=== PATIENT | male | born 1975 | race Caucasian/White ===

== ENCOUNTER 2020-06-26 01:07 | Outpatient (CLI) | payer OTHER, SELFPAY ==
[2020-06-26 18:13] LABS: SARS-CoV-2 RNA PCR Negative
== END 2020-06-26 01:08 | disposition home or self-care (01) ==
LOC: ANHCOVIDDT 01:07
PROVIDERS: PCP Family Medicine Sports Medicine; Visit Provider Internal Medicine Gastroenterology
DX: Z01.812 Encounter for preprocedural laboratory examination (principal); Z20.828 Contact with and (suspected) exposure to other viral communicable diseases
CPT/HCPCS: 87635; C9803; U0003

== ENCOUNTER 2020-06-29 00:58 | Day surgery (SDC) | payer OTHER, SELFPAY ==
[2020-06-17 14:57] VITALS: BMI 34.2
--- NOTE | 2020-06-29 12:03 | WPDANESEPPF ---
Anes - Initial Pre Proc Eval Procedure: Operation Date: 06/29/20 13:00 Proposed Procedures p Esophagogastroduodenoscopy - Terrance Raya MD Date/Time: 06/29/20 12:03 Surgeon: Terrance Raya MD Pre Op Diagnosis: dysphagia Patient Data Age: 44 Gender: M Height: 1.8 m Weight: 111.5 kg Allergies Allergy/AdvReac Type Severity Reaction Status Date / Time ciprofloxacin Allergy Unknown Unknown Verified 06/17/20 14:42 iodine Allergy Unknown Unknown Verified 06/17/20 14:42 ioversol Allergy Unknown Unknown Verified 06/17/20 14:42 metronidazole Allergy Unknown Unknown Verified 06/17/20 14:42 Home Medications Medication Instructions Recorded Confirmed Type Vitamin D3 10,000 units PO DAILY 06/17/20 06/17/20 History Patient hx anesthesia problems: none Family hx anesthesia problems: none PMFSH Past Medical History Medical History (Updated 06/29/20 @ 12:03 by Ozzy Lagos MD) Obesity Family History Family History (Updated 06/18/14 @ 07:13 by DOCTOR UNKNOWN) Sibling Family history of gastrointestinal disorder Mother Family history of Parkinson's disease Social History Social History Smoking status: Former smoker Smoking end date: 10/22/09 Alcohol intake: current Anes - Eval Final PreProcedure Day of Procedure 06/29/20 12:03 Patient weight: obese Heart: regular rate and rhythm Lungs: clear to auscultation and normal air movement Airway: Mallampati scale class II Neurological: alert and oriented Last oral intake: >/= 8 hours ASA classification: II Emergent: no Anesthetic plan: proceed Anesthesia type and monitoring: general GIVS Informed Consent: The patient's anesthetic plan and its attendant risks and benefits were discussed with the patient/family/POA. Questions were solicited and answers provided to the satisfaction of the patient/family/POA.
[2020-06-29 12:12] VITALS: BP 118/75; PULSE 51; RESP 16; TEMP 36.4; O2SAT 99
[2020-06-29] MEDS: LACTATED RINGERS 1,000 ML 150 ML IV CONT (12:26)
--- NOTE | 2020-06-29 12:46 | PM.HPGS ---
History of Present Illness History of Present Illness Consent: Risks, benefits, and alternatives have been discussed and questions answered. Patient agrees to proceed with procedure. Chief complaint: dysphagia Narrative: Korey Ding is a 44 year old male with history of dysphagia, never had EGD Review of Systems Constitutional: Constitutional: Denies headache(s) and Denies weakness Eyes: Eyes: Denies blurry vision ENT: Reports Normal hearing present, Denies headache(s) and Denies neck pain Cardiovascular: Cardiovascular: Denies chest pain and Denies dyspnea Respiratory: Respiratory: Denies dyspnea Gastrointestinal: Gastrointestinal: Reports no additional gastrointestinal complaints Genitourinary: Genitourinary: Denies dysuria Musculoskeletal: Musculoskeletal: Denies neck pain Integumentary/Breasts: Skin/Breast: Denies dry skin Neurologic: Reports Normal hearing present, Denies headache(s) and Denies weakness Psychiatric: Psychiatric: Denies anxiety Endocrine: Endocrine: Denies change in body appearance Hematologic/Lymphatic: Hematologic/Lymphatic: Denies easy bleeding Allergic/Immunologic: Allergic/Immunologic: Denies urticaria PMFSH Past Medical History Medical History (Updated 06/29/20 @ 12:47 by Terrance Raya MD) Dysphagia Obesity Family History Family History (Updated 06/18/14 @ 07:13 by DOCTOR UNKNOWN) Sibling Family history of gastrointestinal disorder Mother Family history of Parkinson's disease Social History Social History Smoking status: Former smoker Smoking end date: 10/22/09 Alcohol intake: current Meds Home Medications and Allergies Home Medications Medication Instructions Recorded Confirmed Type Vitamin D3 10,000 units PO DAILY 06/17/20 06/29/20 History Allergies Allergy/AdvReac Type Severity Reaction Status Date / Time ciprofloxacin Allergy Unknown Unknown Verified 06/29/20 12:28 iodine Allergy Unknown Unknown Verified 06/29/20 12:28 ioversol Allergy Unknown Unknown Verified 06/29/20 12:28 metronidazole Allergy Unknown Unknown Verified 06/29/20 12:28 Vital Signs Vital Signs - 24 hr 06/29/20 12:12 Temperature 97.5 F L Pulse Rate 51 L Respiratory Rate 16 Blood Pressure 118/75 Pulse Oximetry 99 Exam Const: General: comfortable and no acute distress HENMT: General nose exam: Normal nares present Eyes: General: appearance normal, both eyes and all related structures Neck: Neck: no JVD Resp: Auscultation: clear to auscultation bilaterally Cardio: Rate: regular rate Rhythm: regular rhythm GI: Inspection: non-distended GI Palp: Yes Soft to palpation Skin: General skin exam: normal color Neuro: General: gait normal Speech: normal speech Extrem: General: normal to inspection Psych: Mental Status: mental status grossly normal Assessment and Plan Assessment and plan (1) Dysphagia: Code(s): R13.10 - Dysphagia, unspecified Status: Acute Assessment and Plan: will proceed with egd
[2020-06-29 13:10] VITALS: BP 102/54; PULSE 51; RESP 16; O2SAT 99
[2020-06-29 13:20] VITALS: BP 112/68; PULSE 53; RESP 21; O2SAT 100
[2020-06-29 13:30] VITALS: BP 113/63; PULSE 50; RESP 19; O2SAT 100
== END 2020-06-29 13:38 | disposition home or self-care (01) ==
PROVIDERS: PCP Family Medicine Sports Medicine; Visit Provider Internal Medicine Gastroenterology
PROC: 0DJ08ZZ Inspection of Upper Intestinal Tract, Via Natural or Artificial Opening Endoscopic (ICD-10-PCS; CPT 43235; principal; 2020-06-29 13:00)
DX: K29.50 Unspecified chronic gastritis without bleeding (principal); K20.9 Esophagitis, unspecified; K29.80 Duodenitis without bleeding; E66.9 Obesity, unspecified; Z68.34 Body mass index [BMI] 34.0-34.9, adult; Z87.891 Personal history of nicotine dependence
CPT/HCPCS: 43239; 87635; 88305; C9803; J2704; J7120; U0003

== ENCOUNTER 2025-01-28 16:24 | Emergency (ER) | payer OTHER, SELFPAY ==
--- NOTE | ~2025-01-28 | CT_ITS ---
CT cervical spine wo con Ordering provider: Angelita Vuong PA-C History: . fall . Comparison: None. Technique: CT of the cervical spine was performed without contrast. Sagittal and coronal reformatted images were also obtained and reviewed. Automated exposure control and iterative reconstruction jane hnique were employed. The dose-length product was 668.78 mGy-cm. FINDINGS: VERTEBRAE: No subluxation or acute fracture. The occipital condyles are intact. Mild degenerative ch anges. Posterior osteophyte indenting the thecal sac seen at the level of C5. DISC SPACES: Normal. PARASPINOUS SOFT TISSUES: Normal. IMPRESSION: No acute osseous abnormality cervical spine. Reviewed, dictated and finalized at location A.
--- NOTE | ~2025-01-28 | CT_ITS ---
CT brain wo con Ordering provider: Angelita Vuong PA-C History: 49 years Male with . fall . Comparison: None. Technique: CT of the head without contrast. Radiation reduction technique utilized.The dose-length pr oduct was 605.33 mGy-cm. FINDINGS: The lateral to the BRAIN PARENCHYMA AND CSF SPACES: No midline shift, mass effect or hemorrhage. The brain parenchyma a nd CSF spaces are otherwise normal. VISUALIZED PARANASAL SINUSES: Well aerated. MASTOIDS: Well aerated. BONES: The bones appear intact. SOFT TISSUES: Visualized nasopharynx is normal. Superficial soft tissues are normal. IMPRESSION: No acute intracranial findings. Reviewed, dictated and finalized at location A.
[2025-01-28 16:30] VITALS: BP 125/67; PULSE 65; RESP 16; TEMP 36.6; O2SAT 96
--- OUTSIDE RECORDS SUMMARY | 2025-01-28 17:09 | XMS_ITS | Clinical Summary ---
Author Organization [facility] Address [address] [place] [address] Care Team Providers Care Can Dryer Name Role Phone Unavailable Primary Care Provider Unavailabl e Source Comments [facility] [employer],non-owned Affiliates and Associated Physician Practices is amultiple site organization consisting of ambulatory clinics and hospital sitesin [place], [place], [place] and [place]. This disclosure is being madepursuant to the Care Everywhere program and may not contain all information available regarding this patient. Last updated 18.[facility] [employer] Social History Tobacco Use Types Packs/Day Years Used Date Smoking Tobacco: Never Assessed Sex and Gender Information Value Date Recorded Sex Assigned at Not on file Gender Identity Not on file Sexual Orientation Not on file Plan of Treatment Health Maintenance Due Date Last Done Comments COLOGUARD (AGES 45-75) - COL ON CA SCREENING 1975 COLON MONITORING 1975 COLONOSCOPY - COLON CA SCREENING 1975 CT COLONOGRAPHY - COLON CA SCREENING 1975 Colorectal Cancer Screening 1975 FIT - COLON CA SCREENING 1975 FLEX SIG - COLON CA SCREENING 1975 LIPID TESTING 1975 HIV SCREENING 1990 HEPATITIS C SCREENING 08/01/1993 DTAP/TDAP/TD VACCINES (1 - Tdap) 1994 HEPATITIS B VACCINE (1 of 3 - 19+ 3-dose series) 1994 COVID-19 VACCINE ( - 2023-2 5 season) 2024 DEPRESSION SCREENING 10/22/2024 INFLUENZA VACCINE (Season Ended) 2025 ZOSTER VACCINE (1 of 2) 2025 HIB VACCINE Aged Out No longer eligi ble based on patient's age to complete this topic HPV VACCINE Aged Out No longer eligi ble based on patient's age to complete this topic MENINGOCOCCAL (Group B) VACC INE SHARED DECISION-MAKING Aged Out No longer eligibl e based on patient's age to complete this topic MENINGOCOCCAL GROUPS A/C/Y/W VACCINE Aged Out No longer eligible b ased on patient's age to complete this topic PNEUMOCOCCAL VACCINE Aged Out No long er eligible based on patient's age to complete this topic
--- OUTSIDE RECORDS SUMMARY | 2025-01-28 17:09 | XMS_ITS | Encounter Summary ---
Author Organization [facility] Address [address] [place] [address] Care Team Providers Care Credit Assessment Analyst Name Role Phone Unavailable Primary Care Provider Unavailabl e Encounter Details Date Type Department Care Team (Late st Contact Info) Description 05/05/2024 Lab Requisition [facility] - DermPath Lab [address] [place] [address] Diane Garcia MD [address] [facility] [place] [address] [place] [address] Social History Tobacco Use Types Packs/Day Years Used Date Smoking Tobacco: Never Assessed Sex and Gender Information Value Date Recorded Sex Assigned at Not on file Gender Identity Not on file Sexual Orientation Not on file documented as of this encounter Plan of Treatment Not on file documented as of this encounter Procedures Procedure Name Priority Date/Time Associated Diagnosis Comments DERMATOPATHOLOGY Routine 05/05/2024 8:53 AM CDT documented in this encounter Results * DERMATOPATHOLOGY (05/05/2024 8:53 AM CDT) Case Report Dermatopathology Report Case: [id number] Authorizing Provider: Diane Garcia MD Collected: 05/05/2024 08:53 AM Ordering Location: [facility] - Received: 05/05/2024 04:52 PM DermPath Lab Pathologist: Maral Potter MD Specimen: Skin, submental 4 12:47 PM CDT DERMATOPATHOLOGY LABORATORY Final Diagnosis Specimen A. SKIN, submental: SEBORRHEIC KERATOSIS (L82.1) 4 12:47 PM CDT DERMATOPATHOLOGY LABORATORY Clinical History Nevus vs SK vs BCC 12:47 PM CDT DERMATOPATHOLOGY LABORATORY Gross Description Specimen A: Received is one formalin filled container labeled with the patient's name and designated submental. The specimen consists of a shave biopsy measuring 5x5x2 mm. Jar 0. 12:47 PM CDT DERMATOPATHOLOGY LABORATORY Microscopic Description Specimen A. SKIN, submental: Sections show an acanthotic lesion composed of relatively uniform keratinocytes. There is hyperkeratosis and pseudo horn cysts formation. 12:47 PM CDT DERMATOPATHOLOGY LABORATORY Disclaimer An external and internal positive and negative controls are appropriate for the histochemical, immunohistochemical and immunofluorescence stain(s) in this case (if any), except where stated explicitly. The performance characteristics of the stain(s) cited in this report were developed and its performance characteristic determined by the Dermatopathology Laboratory at [facility], directed by Dr. Damian Delgado. These tests need not be, and therefore are not, approved by the [place] Food and Drug Administration. The tests are used for clinical purposes. Billing Codes Specimen Charges Stain Charges 46536 1 4 12:47 PM CDT DERMATOPATHOLOGY LABORATORY Embedded Images 12:47 PM CDT DERMATOPATHOLOGY LABORATORY Pathology/Cytolo gy TISSUE SPECIMEN FROM SKIN / Unknown 05/05/2024 8:53 AM CDT 05/05/2024 4:52 PM CDT Diane Garcia MD LAB - PATHOLOGY/CYTO LOGY ORDERABLES DERMATOPATHOLOGY LABORATORY [facility] - Department of Dermatology [address], [address] [phone] documented in this encounter Visit Diagnoses Not on filedocumented in this encounter
[2025-01-28 18:08] VITALS: BP 115/73; PULSE 55; RESP 18; TEMP 36.7; O2SAT 98
--- OUTSIDE RECORDS SUMMARY | 2025-01-28 19:45 | XMS_ITS | Encounter Summary ---
Author Organization [facility] Address [address] [place] [address] Care Team Providers Care Equal Opportunity Specialist Name Role Phone Unavailable Primary Care Provider Unavailabl e Encounter Details Date Type Department Care Team (Late st Contact Info) Description 05/05/2024 Lab Requisition [facility] - DermPath Lab [address] [place] [address] Diane Garcia MD [address] [facility] [address] [place] [address] Social History Tobacco Use Types Packs/Day Years [...] AM CDT) Case Report Dermatopathology Report Case: [id number] Authorizing Provider: Diane Garcia MD Collected: 05/05/2024 08:53 AM Ordering Location: [facility] Physician [facility] - Received: 05/05/2024 04:52 PM DermPath Lab [...] characteristic determined by the Dermatopathology Laboratory at [facility], directed by Dr. Damian Delgado. These tests need not be, and therefore are not, approved by the [place] Food and Drug Administration. The tests are used for clinical purposes. Billing Codes Specimen Charges Stain Charges 74635 1 4 12:47 PM CDT DERMATOPATHOLOGY LABORATORY Embedded Images 12:47 PM CDT DERMATOPATHOLOGY LABORATORY Pathology/Cytolo gy TISSUE SPECIMEN FROM SKIN / Unknown 05/05/2024 8:53 AM CDT 05/05/2024 4:52 PM CDT Diane Garcia MD LAB - PATHOLOGY/CYTO LOGY ORDERABLES DERMATOPATHOLOGY LABORATORY [facility] - Department of Dermatology [address] [phone] documented in this encounter Visit Diagnoses Not on filedocumented in this encounter
--- OUTSIDE RECORDS SUMMARY | 2025-01-28 19:45 | XMS_ITS | Clinical Summary ---
Author Organization [facility] Address [address] [place] [address] Care Team Providers Care Slide Fastener Repairer Name Role Phone Unavailable Primary Care Provider Unavailabl e Source Comments [facility] [employer],non-owned Affiliates and Associated Physician Practices is amultiple site organization consisting of ambulatory clinics and hospital sitesin [place], [place], [place] and [place]. This disclosure is being madepursuant to the Care Everywhere program and may not contain all information available regarding this patient. Last updated 18.[facility] [employer] Social History Tobacco Use Types Packs/Day Years [...]
--- NOTE | 2025-01-28 20:11 | ED_ITS ---
HPI - Fall General Chief Complaint: Fall Stated Complaint: fall Time Seen by Provider: 01/28/25 19:11 History of Present Illness HPI Narrative: 49-year-old male presents to the emergency department for head injury that occurred around 11:00 a.m. this morning. Patient states he missed the 2nd rung of the ladder and fell backwards and hit his head on a fountain behind him. He did not lose consciousness. He is not anticoagulated. Presents with an abrasion to the posterior head, last Tdap unknown. States a few hours after the head injury he began developing dizziness, blurred vision, nausea and headache. He contacted his PCP was advised to come to the ED. states the vision changes, dizziness and nausea have since resolved. He is also endorsing some pain to left side of his neck but denies back pain or other injuries acquired Related Data Home Medications ?Medication ?Instructions ?Recorded ?Confirmed ?Last Taken ?Type Vitamin D3 10,000 units PO DAILY 06/17/20 10/07/20 06/28/20 08:00 History Allergies Allergy/AdvReac Type Severity Reaction Status Date / Time ciprofloxacin Allergy Unknown Unknown Verified 10/07/20 09:31 iodine Allergy Unknown Unknown Verified 10/07/20 09:31 ioversol Allergy Unknown Unknown Verified 10/07/20 09:31 metronidazole Allergy Unknown Unknown Verified 10/07/20 09:31 Review of Systems Review of Systems: All systems reviewed & are unremarkable except as noted in HPI and below PMFSH Past Medical History Medical History Colon cancer screening GERD (gastroesophageal reflux disease) Dysphagia Obesity Family History Family History Sibling Family history of gastrointestinal disorder Mother Family history of Parkinson's disease Social History Social History Smoking status: Former smoker Smoking end date: 10/22/09 Alcohol intake: current Exam Narrative: GENERAL: Well-appearing, well-nourished, and in no acute distress. HEAD: Normocephalic EYES: PERRLA and EOMI. ENT: Nares clear, no rhinorrhea or epistaxis. Mucous membranes moist. NECK: No midline cervical spinous tenderness, crepitus, step-offs or deformities BACK: No midline thoracolumbar spinous tenderness, crepitus, step-offs or deformities CHEST: Clear to auscultation. No respiratory distress. HEART: Regular rate and rhythm. No murmur heard. Normal peripheral pulses. ABDOMEN: Soft, nontender, nondistended, normal active bowel sounds. EXTREMITIES: Normal range of motion. No edema. SKIN: Superficial abrasion to the posterior scalp with no active bleeding, no lacerations, no scalp crepitus or deformities NEURO: No focal deficits. Alert and oriented x4. Cranial nerves 2-12 intact. Strength 5/5 BUE and BLE. Sensation intact throughout. Normal [id number]. No pronator drift. Course Vital Signs Vital signs: Vital Signs Temperature 97.8 F 01/28/25 16:30 Pulse Rate 65 01/28/25 16:30 Respiratory Rate 16 01/28/25 16:30 Blood Pressure 125/67 01/28/25 16:30 Pulse Oximetry 96 01/28/25 16:30 Oxygen Delivery Room Air 01/28/25 16:30 Temperature 98.0 F 01/28/25 18:08 Pulse Rate 55 L 01/28/25 18:08 Respiratory Rate 18 01/28/25 18:08 Blood Pressure 115/73 01/28/25 18:08 Pulse Oximetry 98 01/28/25 18:08 Oxygen Delivery Room Air 01/28/25 18:08 MDM - Fall MDM Narrative Medical decision making narrative: 49-year-old male presents to the emergency department for head injury that occurred at 11:00 a.m.. Patient did not lose consciousness, he is not antic oagulated. A few hours after the injury he began developing headache, dizziness, nausea and blurred vision. Most of his symptoms beyond the headache have resolved. Contacted his PCP and was advised to come to the ED. Triage vitals are stable. Patient is neurovascularly intact. Plan to obtain CT brain and cervical spine, update tetanus and provide tylenol for pain. Patient eloped out of the department prior to radiology read of CT brain and cervical spine. Discharge Plan Discharge Clinical Impression: Abrasion Head injury Qualifiers: Encounter type: initial encounter Qualified Code(s): S09.90XA - Unspecified injury of head, initial encounter Patient Disposition: Elopement After Seen by Prov Patient Language: Haitian Prescriptions: No Action Vitamin D3 10,000 units PO DAILY omeprazole 40 mg capsule,delayed release(DR/EC) 40 mg PO DAILY Qty: 30 0RF Follow-up/Referrals: Sonam,Kory Faust MD [Primary Care Provider] -
[2025-01-28] MEDS: TETANUS,DIPHTHERIA,AC PERTUSSIS ADULT (0.5 ML) BOOSTRIX IM (20:41)
--- NOTE | 2025-01-28 22:42 | PC.NURSE ---
Pt ambulated to RN nursing station and asks for update on what he is waiting on. RN states we are waiting on CT scan results and explained how we do not have a radiologist overnight so we have to send our scans to stat rad and wait for the results of the CT scan to be faxed over to us. Pt states if he were to leave is there a way to see my results. Rn explained pt can sign up and create an account through our portal and see results that way. Pt states he is going to leave AMA and just wait to see his results through the portal. Pt left ED and signed AMA papres at this time.
== END 2025-01-28 22:47 | disposition left against medical advice (07) ==
PROVIDERS: Emergency Provider Physician Assistant; PCP Family Medicine
DX: S00.01XA Abrasion of scalp, initial encounter (principal); Z23 Encounter for immunization; E66.9 Obesity, unspecified; Z68.36 Body mass index [BMI] 36.0-36.9, adult; K21.9 Gastro-esophageal reflux disease without esophagitis; Z87.891 Personal history of nicotine dependence; W11.XXXA Fall on and from ladder, initial encounter
CPT/HCPCS: 70450; 72125; 90471; 90715; 96372; 99284